=== PATIENT | female | born 1995 ===

== ENCOUNTER 2017-10-10 21:38 | Emergency (ER) | payer SELFPAY ==
[2017-10-10 21:42] VITALS: TEMP 99; O2SAT 100
--- NOTE | 2017-10-10 21:55 | ED PDOC ---
HPI: Back Time Seen by Provider: 10/10/17 21:42 Chief Complaint (Nursing): Back Pain Chief Complaint (Provider): Hip Pain History Per: Patient History/Exam Limitations: no limitations Onset/Duration Of Symptoms: Mins Current Symptoms Are (Timing): Still Present Quality Of Discomfort: "Pain" Pain Scale Rating Of: 6 Previous Symptoms: None Associated Symptoms: None Additional Complaint(s): 21 year old female presents to the emergency department for evaluation of left hip pain and back pain ( rated at a 6/10). Patient states that 10 minutes rior to arrival she slipped and fell down 5 stairs causing injury. Denies loss of consciousness, shortness of breath, chest pain, abdominal pain. Patient took no medications prior to arrival. No history of prior injuries. L.M.P: 1 week ago Past Medical History Reviewed: Historical Data, Nursing Documentation, Vital Signs Vital Signs: Last Vital Signs Temp 99.0 F 10/10/17 21:41 Pulse 79 10/10/17 21:41 Resp 16 10/10/17 21:41 BP 102/57 L 10/10/17 21:41 Pulse Ox 100 10/10/17 21:41 - Medical History PMH: No Chronic Diseases - Surgical History Surgical History: No Surg Hx - Family History Family History: States: Unknown Family Hx - Social History Current smoker - smoking cessation education provided: No Alcohol: None Drugs: Denies - Home Medications Home Medications: Ambulatory Orders Medication Instructions Recorded Naproxen 500 mg PO BID PRN #20 tab 10/10/17 - Allergies Allergies/Adverse Reactions: Allergies Allergy/AdvReac Type Severity Reaction Status Date / Time No Known Allergies Allergy Verified 10/10/17 21:41 Review of Systems Cardiovascular: Negative for: Chest Pain Respiratory: Negative for: Shortness of Breath Gastrointestinal: Negative for: Abdominal Pain Musculoskeletal: Positive for: Back Pain, Other (Left hip pain) Physical Exam - Physical Exam Comments: GENERAL APPEARANCE: Patient is awake, alert, oriented x 3, in no acute distress. SKIN: Warm, dry; (-) cyanosis. EYES: (-) conjunctival pallor. ENMT: Mucous membranes moist. NECK: (-) tenderness, (-) stiffness, (-) lymphadenopathy. CHEST AND RESPIRATORY: (-) rales, (-) rhonchi, (-) wheezes; breath sounds equal bilaterally. HEART AND CARDIOVASCULAR: (-) irregularity; (-) murmur, (-) gallop. ABDOMEN AND GI: Soft; (-) tenderness; (-) palpable mass. BACK: (+) left sciatic notch tenderness. (+) left paralumbar tenderness, (-) mild spasm, (-) direct bony tenderness, (-) deformity. Straight leg raising (- ) bilaterally. EXTREMITIES: (-) deformity. Distal pulses good bilaterally. (+) tenderness to left lateral hip: no ecchymosis, no skin changes. NEURO AND PSYCH: Mental status as above. Intact sensation bilaterally; normal strength in extension of the knees, plantar and dorsiflexion of the toes. DTRs symmetric. - Laboratory Results Urine POC: Negative - ECG O2 Sat by Pulse Oximetry: 100 (RA) Pulse Ox Interpretation: Normal Medical Decision Making Medical Decision Makin Initial impression 21 year old female presenting with acute back and hip pain Initial Plan: * Upreg * RAD Lumbar Spine complete * Naproxen 500 mg PO * RAD Pelvis 2 views * Reevaluation Upreg: Negative 2329 LS and Pelvis XRs : no fracture, as read by PA Patient advised that official radiology read of XR is still pending and will call the patient if there is any discrepancy within 24 hours. On re-evaluation, patient reports improvement of symptoms. On exam, patient remains AAOx3, in no acute distress. On exam, neck is supple, lungs CTA, cardiac RRR, abdomen is soft and non-tender, neuro exam shows no focal findings. Gait steady in ED. VSS, stable for discharge. Diagnostic results d/w the patient in great detail. Dx of acute back/hip pain s/ p fall d/w the patient. Based on history, exam and diagnostic results plan will be for discharge and outpatient follow up. Advised to follow up with primary care physician/ortho/clinic in 1-2 days without fail. Advised to take medication as prescribed. Return to the emergency room at any time for any new or worsening symptoms. Patient states she fully agrees with and understands discharge instructions. States that she agrees with the plan and disposition. Verbalized and repeated discharge instructions and plan. I have given the patient opportunity to ask any additional questions. Documented by Ariela Funk acting as a scribe for Patricia Medley PA-C. All medical record entries made by the Scribe were at my direction and personally dictated by me. I have reviewed the chart and agree that the record accurately reflects my personal performance of the history, physical exam, medical decision making, and the department course for this patient. I have also personally directed, reviewed, and agree with the discharge instructions and disposition. Disposition - Clinical Impression Clinical Impression: Back pain, Hip pain, Fall down stairs - Patient ED Disposition Is Patient to be Admitted: No Counseled Patient/Family Regarding: Studies Performed, Diagnosis, Need For Followup, Rx Given - Disposition Referrals: [facility] [Outside] Praveen Grier MD [Medical Doctor] - Disposition: Routine/Home Disposition Time: 23:32 Condition: STABLE Additional Instructions: La atencin mdica de emergencia que recibi hoy estaba dirigida a kelly sntomas agudos. Si le prescribieron algn medicamento, llnelo y tome segn las indicaciones. Kelly sntomas pueden tardar varios gordon en resolverse. Regrese al Departamento de Emergencia si kelly sntomas empeoran, no mejoran o si tiene alg n otro problema. Comunquese con askew mdico en 2 gordon para maria d reevaluacin y seguimiento / o llame a aixa de los mdicos / clnicas a los que alegre referido y que figura en el formulario de Informacin de visitas del paciente que se incluye en askew paquete de rita. Traiga todos los documentos que recibi al momento del rita junto con los medicamentos que est tomando en askew visita de seguimiento. Nuestro tratamiento no puede reemplazar la atencin mdica en curso por parte de un proveedor de atencin primaria (PCP) fuera del departamento de emergencias. Prescriptions: Naproxen 500 mg PO BID PRN #20 tab PRN Reason: Pain, Moderate (4-7) Instructions: Hip Pain, Low Back Pain (DC), Contusion (DC) Forms: [employer] (Tongan) Print Language: POLISH - EMI Present On Arrival: Falls Or Trauma
[2017-10-10] MEDS ORDERED: Naproxen 500 MG TAB PO STA (21:57)
[2017-10-10] MEDS ORDERED: Naproxen 500 MG TAB PO ONE (22:14)
[2017-10-10 23:38] VITALS: BP 112/63; PULSE 71; RESP 15
--- NOTE | 2017-10-11 16:09 | RAD ---
Date of service: 10/10/2017 PROCEDURE: Radiographs of the Lumbar Spine. HISTORY: s/p fall COMPARISON: No prior. FINDINGS: BONES: Anterior subluxation of L5 relative to S1. L5 spondylolysis suspect. DISC SPACES: Unremarkable. OTHER FINDINGS: Right colonic stool retention. IMPRESSION: Grade 1 spondylolisthesis of L5 on S1. L5 spondylolysis suspect. . No vertebral body compression fracture.
--- NOTE | 2017-10-11 16:10 | RAD ---
Date of service: 10/10/2017 PROCEDURE: Radiographs of the pelvis. HISTORY: s/p fall COMPARISON: None. FINDINGS: BONES: Pelvic Bones: Unremarkable. Hips: Grossly unremarkable. JOINTS: Sacroiliac Joints: Unremarkable. Pubic Symphysis: Unremarkable. OTHER FINDINGS: Right colonic stool retention. IMPRESSION: No fracture appreciated Right colonic stool retention
== END 2017-10-10 23:38 | disposition home or self-care (01) ==
LOC: H.ER 21:38
DX: M25.559 Pain in unspecified hip (principal); M54.9 Dorsalgia, unspecified; W10.9XXA Fall (on) (from) unspecified stairs and steps, initial encounter